=== PATIENT | female | born 1995 ===

== ENCOUNTER 2018-01-04 09:08 | Emergency (ER) | payer OTHER ==
[2018-01-04 09:19] VITALS: BMI 24.3
[2018-01-04 09:20] VITALS: TEMP 98.9
[2018-01-04 09:56] LABS: BASO % 0.4 % (0.0-2.0); EOS # 0.1 K/uL (0.0-0.7); EOS % 0.8 % (0.0-4.0); HEMOGLOBIN 14.1 g/dL (11.0-16.0); LYMPH # 2.7 K/uL (1.0-4.3); LYMPH % 25.8 % (20.0-40.0); MEAN CELL VOLUME 87.8 fL (81.0-99.0); MEAN CORPUSCULAR HEMOGLOBIN 30.4 pg (27.0-31.0); MEAN CORPUSCULAR HGB CONC 34.6 g/dL (33.0-37.0); MEAN PLATELET VOLUME 8.8 fL (7.2-11.7); MONO # 0.5 K/uL (0.0-0.8); MONO % 5.2 % (0.0-10.0); NEUT # 7.1 K/uL (1.8-7.0); NEUT % 67.8 % (50.0-75.0); NRBC % 0.1 % (0.0-2.0); RBC 4.64 Mil/uL (3.80-5.20); RED CELL DISTRIBUTION WIDTH 13.3 % (11.5-14.5); WHITE BLOOD COUNT 10.5 K/uL (4.8-10.8)
[2018-01-04 10:00] LABS: HCG,QUALITATIVE URINE POSITIVE (NEGATIVE)
[2018-01-04 10:08] LABS: ALB/GLOB RATIO 1.4 (1.0-2.1); ALBUMIN 4.4 g/dL (3.5-5.0); ALT/SGPT 37 U/L (9-52); AST/SGOT 25 U/L (14-36); BLOOD UREA NITROGEN 6 mg/dL (7-17); CALCIUM 9.1 mg/dl (8.6-10.4); GFR NON-AFRICAN AMERICAN > 60; SQUAMOUS EPITHIAL 5 /hpf (0-5); URINE BILIRUBIN NEGATIVE (NEGATIVE); URINE BLOOD NEGATIVE (NEGATIVE); URINE CLARITY Clear (Clear); URINE COLOR Yellow (YELLOW); URINE GLUCOSE (UA) NORMAL (Normal); URINE LEUKOCYTE ESTERASE NEG Leu/uL (Negative); URINE PROTEIN NEGATIVE (NEGATIVE); URINE UROBILINOGEN NORMAL mg/dL (0.2-1.0)
--- NOTE | 2018-01-04 10:57 | US ---
Date of service: 01/04/18 Indication: , pain, spotting Comparison: None available Technique: Transabdominal pelvic ultrasound Findings: The uterus measures approximately 10.4 x 5.7 x 8.2 cm. Anteverted. Cervix length measures approximately 2.8 cm. There is a single intrauterine fetus present. 2 mm yolk sac. The gestational sac measures 3.7 cm and is compatible with a gestational age of 8 weeks 6 days. The crown-rump length measures 1.9 cm and is compatible with a gestational age of 8 weeks 3 days. There is heart motion which measured 152.3 BPM. The right ovary measures 3.2 x 1.3 x 3.2 cm. The left ovary measures 3.3 x 1.6 x 2.6 cm. Blood flow was demonstrated to both ovaries. Impression: Live single intrauterine with estimated gestational age 8 weeks 6 days by gestational sac calculation and 8 weeks 3 days by crown-rump length calculation. heart rate 152.3 bpm. Advise an anomaly screen at 16-18 weeks gestational age
--- NOTE | 2018-01-04 11:35 | C.PDOC ---
Time Seen by Provider: 01/04/18 09:34 Chief Complaint (Nursing): Abdominal Pain Past Medical History Vital Signs: Last Vital Signs Temp 98.9 F 01/04/18 09:19 Pulse 67 01/04/18 09:19 Resp 17 01/04/18 09:19 BP 147/81 01/04/18 09:19 Pulse Ox 100 01/04/18 09:19 - Social History Hx Alcohol Use: No Hx Substance Use: No - Immunization History Hx Tetanus Toxoid Vaccination: No Hx Influenza Vaccination: No Hx Pneumococcal Vaccination: No ED Course And Treatment - Laboratory Results Result Diagrams: 01/04/18 09:51 01/04/18 09:51 O2 Sat by Pulse Oximetry: 100 Disposition Counseled Patient/Family Regarding: Studies Performed, Diagnosis, Need For Followup - Disposition Disposition: HOME/ ROUTINE Condition: GOOD Instructions: Threatened Miscarriage (DC) Print Language: [place]ALLISIAN - POA Present On Arrival: None - Clinical Impression Clinical Impression: Threatened
--- NOTE | 2018-01-04 11:37 | C.PDOC ---
History Of Present Illness 22-year-old female, presents to the emergency department with complaints of lower abdominal pain ongoing x3 weeks. Patient states she is 8-weeks and is pending OBGYN appointment. Patient states she noted vaginal bleeding last week, which resolved. Yesterday, she developed nausea and an episode of non-bloody/non-bilious vomiting, prompting visit. She denies fever, dizziness, chest pain. Time Seen by Provider: 01/04/18 09:34 Chief Complaint (Nursing): Abdominal Pain History Per: Patient History/Exam Limitations: no limitations Onset/Duration Of Symptoms: Days Past Medical History Reviewed: Historical Data, Nursing Documentation, Vital Signs Vital Signs: Last Vital Signs Temp 98.9 F 01/04/18 09:19 Pulse 67 01/04/18 09:19 Resp 17 01/04/18 09:19 BP 147/81 01/04/18 09:19 Pulse Ox 100 01/04/18 09:19 - Medical History PMH: No Chronic Diseases Surgical History: No Surg Hx Family History: States: No Known Family Hx - Social History Hx Alcohol Use: No Hx Substance Use: No - Immunization History Hx Tetanus Toxoid Vaccination: No Hx Influenza Vaccination: No Hx Pneumococcal Vaccination: No Review Of Systems Constitutional: Negative for: Fever Cardiovascular: Negative for: Chest Pain Respiratory: Negative for: Shortness of Breath Gastrointestinal: Positive for: Nausea, Vomiting, Abdominal Pain Genitourinary: Positive for: Vaginal Bleeding. Negative for: Dysuria Musculoskeletal: Positive for: Back Pain Skin: Negative for: Rash Neurological: Negative for: Weakness Physical Exam - Physical Exam Appears: Non-toxic, No Acute Distress Skin: Normal Color, Warm, Dry, No Rash Head: Atraumatic, Normacephalic Eye(s): bilateral: Normal Inspection, PERRL, EOMI Nose: Normal Oral Mucosa: Moist Lips: Normal Appearing Neck: Normal ROM Cardiovascular: Rhythm Regular, No Murmur Respiratory: Normal Breath Sounds, No Accessory Muscle Use Gastrointestinal/Abdominal: Soft, No Tenderness Back: No Paraspinal Tenderness Extremity: Normal ROM, No Deformity Extremity: Bilateral: Atraumatic, No Pedal Edema, Normal ROM Neurological/Psych: Oriented x3, Normal Speech ED Course And Treatment - Laboratory Results Result Diagrams: 01/04/18 09:51 01/04/18 09:51 Lab Interpretation: No Acute Changes O2 Sat by Pulse Oximetry: 100 Pulse Ox Interpretation: Normal (RA) - CT Scan/US US Other Rad Studies (CT/US): Read By Radiologist, Radiology Report Reviewed CT/US Interpretation: Accession No. : [id number]. Patient Name / ID : TIMO GOODRICH / [id number]. Exam Date : 01/04/2018 10:28:47 ( Approved ). Study Comment : Sex / Age : F / 22Y. Creator : Josselin Ang MD. Dictator : Josselin Ang MD. Odd Jobs Day Worker : Oven Unloader : Josselin Ang MD. Approver2 : Report Date : 01/04/2018 10:54:01. My Comment : . Date of service: 01/04/18. Indication: , pain, spotting. Comparison: None available. Technique: Transabdominal pelvic ultrasound. Findings: The uterus measures approximately 10.4 x 5.7 x 8.2 cm. Anteverted. Cervix length measures approximately 2.8 cm. There is a single intrauterine fetus present. 2 mm yolk sac. The gestational sac measures 3.7 cm and is compatible with a gestational age of 8 weeks 6 days. The crown-rump length measures 1.9 cm and is compatible with a gestational age of 8 weeks 3 days. There is heart motion which measured 152.3 BPM. The right ovary measures 3.2 x 1.3 x 3.2 cm. The left ovary measures 3.3 x 1.6 x 2.6 cm. Blood flow was demonstrated to both ovaries. Impression: Live single intrauterine with estimated gestational age 8 weeks 6 days by gestational sac calculation and 8 weeks 3 days by crown-rump length calculation. heart rate 152.3 bpm. Advise an anomaly screen at 16-18 weeks gestational age Medical Decision Making Medical Decision Making: Plan: * Bloodwork * Ultrasound * UA Reassess and Disposition labs reviewed. US shows IUP 8 weeks. On re-eval, patient is resting comfortably, abdomen remains soft, and patient is in no distress. Patient feels comfortable going home. Discussed results with patient, and copy of report was provided. Patient will be discharged home. Disposition - Disposition [facility] Disposition: HOME/ ROUTINE Disposition Time: 11:50 Condition: GOOD Additional Instructions: Tus laboratorios son normales La ecografa muestra embarazo 8 semanas 6 cline. sigue con tu gineclogo Instructions: Threatened Miscarriage (DC) Print Language: IRISH - POA Present On Arrival: None - Clinical Impression Clinical Impression: Threatened - Scribe Statement The provider has reviewed the documentation as recorded by the Scribe (Ulysses Pickett) All medical record entries made by the Scribe were at my direction and personally dictated by me. I have reviewed the chart and agree that the record accurately reflects my personal performance of the history, physical exam, medical decision making, and the department course for this patient. I have also personally directed, reviewed, and agree with the discharge instructions and disposition.
[2018-01-04 11:51] VITALS: BP 134/84; PULSE 78; RESP 16
[2018-01-04 13:57] VITALS: O2SAT 100
== END 2018-01-04 11:51 | disposition home or self-care (01) ==
LOC: C.ER 09:08
DX: O20.0 Threatened abortion (principal); Z3A.08 8 weeks gestation of pregnancy

== ENCOUNTER 2018-05-07 21:00 | Emergency (ER) | payer OTHER ==
[2018-05-07 21:16] VITALS: BMI 29.2
[2018-05-07 22:15] LABS: SQUAMOUS EPITHIAL 11 /hpf (0-5); URINE AMORPHOUS SEDIMENT RARE /ul (<OCC); URINE BACTERIA FEW (<OCC); URINE BILIRUBIN NEGATIVE (NEGATIVE); URINE BLOOD NEGATIVE (NEGATIVE); URINE CLARITY Hazy (Clear); URINE GLUCOSE (UA) NORMAL (Normal); URINE LEUKOCYTE ESTERASE TRACE Leu/uL (Negative); URINE PROTEIN 1+ mg/dL (NEGATIVE)
[2018-05-07 22:16] LABS: URINE COLOR YELLOW (YELLOW)
[2018-05-08] MEDS ORDERED: ceFAZolin IV 1 gm in Dextrose 1 GM/50 ML BAG IVPB ONE (00:41)
[2018-05-08] MEDS ORDERED: Betamethasone Soluspan 30 mg/5mL Inj Susp IM ONE (00:57)
[2018-05-08 01:18] LABS: BASO % 0.3 % (0.0-2.0); EOS # 0.5 K/uL (0.0-0.7); EOS % 4.1 % (0.0-4.0); HEMOGLOBIN 12.5 g/dL (11.0-16.0); LYMPH # 3.1 K/uL (1.0-4.3); LYMPH % 25.9 % (20.0-40.0); MEAN CELL VOLUME 89.9 fL (81.0-99.0); MEAN CORPUSCULAR HEMOGLOBIN 29.9 pg (27.0-31.0); MEAN CORPUSCULAR HGB CONC 33.3 g/dL (33.0-37.0); MEAN PLATELET VOLUME 9.1 fL (7.2-11.7); MONO # 0.7 K/uL (0.0-0.8); MONO % 5.6 % (0.0-10.0); NEUT # 7.8 K/uL (1.8-7.0); NEUT % 64.1 % (50.0-75.0); RBC 4.17 Mil/uL (3.80-5.20); RED CELL DISTRIBUTION WIDTH 13.2 % (11.5-14.5); WHITE BLOOD COUNT 12.2 K/uL (4.8-10.8)
--- NOTE | 2018-05-08 01:25 | OBHP ---
Datetime: 05/07/2018 23:55 IP Adm Impression: , intrauterine ; No Active Labor; Intact Membranes IP Chief Complaint Other: Nausea and Vomiting IP Admit Plan: Initiate labor protocol Admit Comment, IP Provider: 22 yo female with an IUP at 26.1 weeks and presented with c/o o f low back and pelvic pain for about 10 hours. Admits to adequate FM and denies LOF, VB or VD. Shonda lozoya states that she delivered her first child at 25 weeks so for this she has a Cerclage in p lace and receives weekly Blanca injections. PMHx: Asthma, last attack about 1 month ago PSHx: Denies Meds: PNV and Albuterol inhaler NKDA Social Hx: Denies smoking, ETOH or street drugs PE: as noted above A/P: 1. 26.1 weeks IUP per patients Hx of EDC 08/13/18 2. Persistent N_V for about 10 hrs prior to presentation/Ressolved after IV Hydration 3. Probable Dehydration 4. Hx of Delivery at 25 weeks 5. Intermittent abdominal pain and constant back pains also for about 10 hrs. 6. Hx of Asthma 7. NST Reactive 8. Diastolic BP up to 85 and denies Hx of HTN. PIH panel ordered 8. Uterine irritability at best that ressolved with IV Hydration. FFN done and Celestone ordered. Continue and uterine monitoring Pelvic Type - PN: Adequate Extremities - PN: Normal Abdomen - PN: Normal Back - PN: Normal Breast - PN: Not Done Lungs - PN: Normal Heart - PN: Normal Thyroid - PN: Normal Neurologic - PN: Normal HEENT - PN: Normal General - PN: Normal FHR - Baseline A Provider: 120 Membranes, Provider: Intact Contraction Comments Provider: Ocassional Gestation - Est Wks by US: 26.1 EGA AdmitDate IP: 26.1 Vital Signs Provider: Reviewed IP Chief Complaint: Uterine contractions; Maternal discomfort; Other NICHD Variability Prov Fetus A: Moderate 6-25bpm NICHD Accel Fetus A IP Provider: 10X10 FHR Category Provider Fetus A: Category I NICHD Decel Fetus A IP Provider: None Dilatation, Provider: 0 Effacement, Provider: 30 Station, Provider: floating Genitourinary Exam: Normal DTRs - PN: Normal
[2018-05-08 01:51] LABS: CREATININE, RANDOM URINE 51.4 mg/dL
[2018-05-08 01:54] LABS: ALB/GLOB RATIO 1.3 (1.0-2.1); ALBUMIN 3.5 g/dL (3.5-5.0); ALT/SGPT 24 U/L (9-52); AST/SGOT 22 U/L (14-36); BLOOD UREA NITROGEN 3 mg/dL (7-17); CALCIUM 8.9 mg/dl (8.6-10.4); GFR NON-AFRICAN AMERICAN > 60; URIC ACID 2.9 mg/dL (2.2-7.5)
[2018-05-08] MEDS ORDERED: Potassium Chloride 20 mEq/15 ml LIQ UD PO ONE ×2 (02:45→03:30)
[2018-05-08 03:57] LABS: SPECIMEN COMMENT CLOUDY SAMPLE
--- NOTE | 2018-05-08 07:03 | OBADHP ---
Datetime: 05/08/2018 01:54 Admit Comment, IP Provider: 22 yo female with an IUP at 26.1 weeks and presented with c/o o f low back and pelvic pain for about 10 hours. Admits to adequate FM and denies LOF, VB or VD. Shonda lzooya states that she delivered her first child at 25 weeks so for this [facility] and receives weekly [place] injections. PMHx: Asthma, last attack about 1 month ago PSHx: Denies Meds: PNV and Albuterol inhaler NKDA Social Hx: Denies smoking, ETOH or street drugs PE: as noted above A/P: 1. 26.1 weeks IUP per patients Hx of EDC 08/13/18 2. Persistent N_V for about 10 hrs prior to presentation/Ressolved after IV Hydration 3. Probable Dehydration 4. Hx of Delivery at 25 weeks 5. Intermittent abdominal pain and constant back pains also for about 10 hrs. 6. Hx of Asthma 7. NST Reactive 8. Diastolic BP up to 85 and denies Hx of HTN. PIH panel ordered and negative No more uterine activity UA with + UTI and started on Ancef and follow up with Keflex po Continue with Back pains and will give Tylenol po Awaiting for FFN result Celestone given Will admit to observtion and continue monitoring Pelvic Type - PN: Adequate Extremities - PN: Normal Abdomen - PN: Normal Back - PN: Normal Breast - PN: Not Done Lungs - PN: Normal Heart - PN: Normal Thyroid - PN: Normal Neurologic - PN: Normal HEENT - PN: Normal General - PN: Normal FHR - Baseline A Provider: 120's Membranes, Provider: Intact Gestation - Est Wks by US: 26.1 Vital Signs Provider: Reviewed IP Chief Complaint: Signs/symptoms UTI; Maternal discomfort Genitourinary Exam: Normal DTRs - PN: Normal EGA AdmitDate IP: 26.1 IP Adm Impression: , intrauterine ; No Active Labor; Intact Membranes IP Admit Plan: Admit to unit; Observation/Evaluation Datetime: 05/07/2018 23:55 IP Chief Complaint Other: Nausea and Vomiting Contraction Comments Provider: Ocassional NICHD Variability Prov Fetus A: Moderate 6-25bpm NICHD Accel Fetus A IP Provider: 10X10 FHR Category Provider Fetus A: Category I NICHD Decel Fetus A IP Provider: None Dilatation, Provider: 0 Effacement, Provider: 30 Station, Provider: floating
--- NOTE | 2018-05-08 09:29 | OBDCSUM ---
Datetime: 05/08/2018 06:53 Discharged to, Provider: Home Follow up at, Provider: CLINIC Disch Instr Activity: Normal activity Disch Instr Diet: Regular Discharge Instructions, Provider: Routine instructions given Discharge Time: 05/08/2018 06:54 Follow up in weeks, Provider: 05/10/2018 Disch Referrals: None Contraception discussed, Prov: No Disch Activity Restrictions: No exercising; No lifting; No driving; Minimize stair-climbing; No sexu al activity; Nothing in vagina - [place], tampons, douche Discharge Comment, Provider: 22 yo female with an IUP at 26.1 weeks and presented with c/o of low back and pelvic pain for about 10 hours. Admits to adequate FM and denies LOF, VB or VD. [facility] states that she delivered her first child at 25 weeks so for this she has a Cerclage in place and receives weekly [place] injections. PMHx: Asthma, last attack about 1 month ago PSHx: Denies Meds: PNV and Albuterol inhaler NKDA Social Hx: Denies smoking, ETOH or street drugs PE: as noted above A/P: 1. 26.1 weeks IUP per patients Hx of EDC 08/13/18 2. Persistent N_V for about 10 hrs prior to presentation/Ressolved after IV Hydration 3. Probable Dehydration 4. Hx of Delivery at 25 weeks 5. Intermittent abdominal pain and constant back pains also for about 10 hrs. 6. Hx of Asthma 7. NST Reactive 8. Diastolic BP up to 85 and denies Hx of HTN. PIH panel ordered and negative No more uterine activity UA with + UTI and started on Ancef and follow up with Keflex po Back pains relieved with Tylenol po FFN resulted Negative and patient aware Celestone given Pt feeling much better and in Stable and Satisfactory condition. Will discharge home with instructions to bed rest for next 24 hours, pelvic rest and to increase p o water intake Also a Rx for Keflex given x 7 days Will F/Up with her Clinic on next scheduled appointment. Discharge Diagnosis Prov Other: Contractions Dehydration Symptomatic UTI Hx of Delivery Cerclage in place
[2018-05-08 11:16] VITALS: BP 123/65; PULSE 81; RESP 18; TEMP 98; O2SAT 99
== END 2018-05-08 07:10 | disposition home or self-care (01) ==
LOC: C.EROB 21:00
DX: O26.892 Other specified pregnancy related conditions, second trimester (principal); R10.2 Pelvic and perineal pain; O21.9 Vomiting of pregnancy, unspecified; Z3A.26 26 weeks gestation of pregnancy
CPT/HCPCS: 80053; 81001; 82570; 82731; 83615; 84156; 84550; 85025; 87086; 96372; 96374; 99283; J0690; J0702

== ENCOUNTER 2018-05-09 05:20 | Emergency (ER) | payer OTHER ==
[2018-05-09 05:43] VITALS: BMI 29.0
[2018-05-09] MEDS ORDERED: Betamethasone Soluspan 30 mg/5mL Inj Susp IM ONE (06:22)
--- NOTE | 2018-05-15 09:50 | OBHP ---
Datetime: 05/09/2018 06:23 IP Adm Impression: , intrauterine IP Chief Complaint Other: Celestone administration IP Adm Impression Other: H/O delivery; UTI IP Admit Plan: Observation/Evaluation Admit Comment, IP Provider: Patient here for second dose of celestone 22 , DANIELA 08/13/18, EGA 26w 2d h/o del at 25 weeks, cerclage in situ on [place], seen 05/08/18 for lower abdominal pain - diagnosed with UTI; sent home on antiobiotics, which she started in the am. Took second dose at 1800 hours. (+) AFM; denies LOF, VB, Ctx " no pain like yesterday". care: [facility] - on Blanca (pV and IM until 35 weeks) P Ob: delivery at 25 week, male, 1lb 3oz, [facility]. in NICU x 4 week s, Alive and well; no neurological or developmental challenges. 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 [place] STIs, myomata PMH: H/O asthma, diagnosed 2014; last attack 03/2018. Never intubated or on steroids. PSH: denies NKDA Meds: PNV, antibiotics, [place] - as above. Soc Hx: denies tobacco, illicit drug or EtOH use. Lives with FOB; together x 3 years. Unemployed Fam Hx:Mother alive 49 y.o. Fahter alive 60 y.o., both HTN. No known fam h/o cancer Assessment: 22 y.o. , 26w 2d, h/o delivery, newly diagnosed UTI, on weekly [place], cerclage in situ, S/P celestone here for second dose. FHR appropriate for gestaiotnal dose. Clinical ly stable Plan: 1) Administer celestone 12 mg IM x 1 2) Can discharge home 3) Continue/complete antibiotics for UTI 4) Keep next scheduled appointment, 05/10/18 5) Reviwed S/S PTL Pelvic Type - PN: Not Done Extremities - PN: Normal Abdomen - PN: Normal Back - PN: Normal Breast - PN: Not Done Lungs - PN: Normal Heart - PN: Normal Thyroid - PN: Not Done Neurologic - PN: Normal HEENT - PN: Normal General - PN: Normal FHR - Baseline A Provider: 130 Contraction Comments Provider: deferred Comments, ACOG Physical Exam: Abdomen: Gravid. Soft. Non tender in all quadrants All other systems reviewed and are negative Gestation - Est Wks by US: 26w 2d Vital Signs Provider: Reviewed; Within Normal Limits NICHD Variability Prov Fetus A: Moderate 6-25bpm NICHD Accel Fetus A IP Provider: 10X10 NICHD Decel Fetus A IP Provider: None Dilatation, Provider: deferred Genitourinary Exam: Not Done DTRs - PN: Not Done Datetime: 05/08/2018 01:54 Membranes, Provider: Intact EGA AdmitDate IP: 26.1 IP Indication for Induction: Not Applicable IP Chief Complaint: Signs/symptoms UTI; Maternal discomfort
[2018-05-15 13:50] VITALS: BP 112/58; PULSE 78; RESP 18
== END 2018-05-09 06:50 | disposition home or self-care (01) ==
LOC: C.EROB 05:20
DX: Z36.89 Encounter for other specified antenatal screening (principal)
CPT/HCPCS: 96372; J0702